=== PATIENT | female | born 1980 | race Caucasian/White ===

== ENCOUNTER 2017-02-01 13:22 | Emergency (ER) | payer OTHER ==
[2017-02-01 13:35] VITALS: BP 108/68
== END 2017-02-01 15:14 | disposition home or self-care (01) ==
LOC: ED 15:00
DX: O9A.211 Injury, poisoning and certain other consequences of external causes complicating pregnancy, first trimester (principal); Z3A.08 8 weeks gestation of pregnancy; S16.1XXA Strain of muscle, fascia and tendon at neck level, initial encounter; V59.49XA Driver of pick-up truck or van injured in collision with other motor vehicles in traffic accident, initial encounter; Y93.89 Activity, other specified; Y92.89 Other specified places as the place of occurrence of the external cause; Y99.8 Other external cause status
CPT/HCPCS: 76801; 99284

== ENCOUNTER 2020-11-16 18:57 | Emergency (ER) | payer OTHER ==
[~2020-11-16] VITALS: Ht 157.5 cm; Wt 77.5 kg
[2020-11-16 19:02] VITALS: BP 137/94
--- NOTE | 2020-11-16 19:15 | NUR ---
40F COMES IN FOR BITE FROM A DOG, SMALL PUNCTURE NOTED TO R LATERAL KNEE, STS UTD ON ALL VACCINATIONS. PT RESTING ON GURNEY NADN NO NEEDS AT THIS TIME.
--- NOTE | 2020-11-16 19:54 | NUR ---
Patient/Caregiver given discharge instructions and they have confirmed that they understand the instructions. Patient ambulatory with steady gait.
== END 2020-11-16 19:55 | disposition home or self-care (01) ==
LOC: ED 19:50
DX: S81.851A Open bite, right lower leg, initial encounter (principal); W54.0XXA Bitten by dog, initial encounter; Y93.89 Activity, other specified; Y92.89 Other specified places as the place of occurrence of the external cause; Y99.8 Other external cause status
CPT/HCPCS: 99283